=== PATIENT | female | born 1990 | race American Indian/Alaskan Native ===

== ENCOUNTER 2020-05-03 21:37 | Outpatient (CLI) | payer MEDICAID ==
[2020-05-03 22:00] VITALS: BP 131/67
== END 2020-05-03 23:35 | disposition home or self-care (01) ==
LOC: TRG 21:37 → APU 21:38 → TRG 23:35
PROVIDERS: ATTEND Obstetrics & Gynecology
DX: O42.913 Preterm premature rupture of membranes, unspecified as to length of time between rupture and onset of labor, third trimester (principal); Z3A.37 37 weeks gestation of pregnancy
CPT/HCPCS: 59025

== ENCOUNTER 2020-05-08 01:23 | Outpatient (CLI) | payer MEDICAID ==
[2020-05-08 01:51] VITALS: BP 120/58
== END 2020-05-08 03:04 | disposition home or self-care (01) ==
LOC: TRG 01:23 → APU 01:24 → TRG 03:04
PROVIDERS: ATTEND Obstetrics & Gynecology
DX: O47.02 False labor before 37 completed weeks of gestation, second trimester (principal); Z3A.25 25 weeks gestation of pregnancy
CPT/HCPCS: 59025

== ENCOUNTER 2020-05-10 23:06 | Inpatient (IN) | payer MEDICAID ==
[2020-05-11] MEDS ORDERED: BUTORPHANOL 2 MG/1 ML INJ IV PRN (02:18)
[2020-05-11] MEDS ORDERED: ePHEDrine SULFATE 50 MG/1 ML INJ IV PRN (02:18)
[2020-05-11] MEDS ORDERED: AMPICILLIN/NS 2 GM/100 ML 2 GM/100 ML BAG IV ONE (02:18)
[2020-05-11] MEDS ORDERED: TERBUTALINE 1 MG/1 ML INJ SUB-Q PRN (02:18)
[2020-05-11] MEDS ORDERED: LIDOCAINE (2%) 20 MG/1 ML VIAL 20 ML MDV INFILTRATI ONE (02:18)
[2020-05-11] MEDS ORDERED: MINERAL OIL 30 ML ORAL LIQD PO PRN (02:18)
[2020-05-11] MEDS ORDERED: ONDANSETRON 4 MG/2 ML INJ IV PRN ×4 (02:18→23:27)
[2020-05-11] MEDS ORDERED: OXYTOCIN DRIP 30 UNITS/500 ML BAG IV SCH ×4 (03:00→23:27)
[2020-05-11 03:42] LABS: Hemoglobin 12.5 gm/dl (10.1-14.3); Mean Corpuscular HGB Conc 34 % (30-34); Mean Corpuscular Volume 81 fl (79-97); Platelet Count 257 K/mm3 (140-440); Red Blood Count 4.59 M/mm3 (3.65-5.03); Red Cell Distribution Width 16.1 % (13.2-15.2)
[2020-05-11] MEDS: LACTATED RINGERS 1,000 ML IV SCH ×2 (04:48→08:20)
--- NOTE | 2020-05-11 07:54 | Anesthesia Consultation ---
Anesthesia Consult and Med Hx Date of service: 05/11/20 - Airway Anesthetic Teeth Evaluation: Good ROM Head & Neck: Adequate Mental/Hyoid Distance: Adequate Mallampati Class: Class III Intubation Access Assessment: Possibly Difficult - Pulmonary Exam CTA: Yes - Cardiac Exam Cardiac Exam: RRR - Pre-Operative Health Status ASA Pre-Surgery Classification: ASA2 Proposed Anesthetic Plan: Epidural - Pulmonary Hx Smoking: No Hx Asthma: No COPD: No Hx Pneumonia: No Hx Sleep Apnea: No - Cardiovascular System Hx Hypertension: No Hx Heart Attack/AMI: No - Central Nervous System Hx Seizures: No Hx Psychiatric Problems: No - Gastrointestinal Hx Gastroesophageal Reflux Disease: No - Endocrine Hx Renal Disease: No Hx End Stage Renal Disease: No Hx Insulin Dependent Diabetes: No Hx Non-Insulin Dependent Diabetes: No Hx Hypothyroidism: No Hx Hyperthyroidism: No - Hematic Hx Anemia: No Hx Sickle Cell Disease: No - Other Systems Hx Alcohol Use: No Hx Obesity: Yes
--- NOTE | 2020-05-11 07:55 | Progress Note ---
Labor Epidural - Labor Epidural Start Time: 07:32 Stop Time: 07:47 Performed by:: SHAUNNA SAINI Procedure: Patient is requesting a laboring epidural for laboring pain. Patient IDed, H&P reviewed, all questions and concerns were answered, and consent was signed. Timeout was performed at bedside. Patient in sitting position. Sterile prep and drape was performed. 3ml of 1% lidocaine skin wheal at L[3]- L [4]. 18- gauge Touhy epidural needle was advanced to loss of resistance with air technique. Negative CSF negative blood. Epidural catheter advanced to [16] centimeters. [-] Aspiration [-] test dose. Sterile dressing applied. Patient tolerated procedure.
[2020-05-11] MEDS ORDERED: NalbUPHINE 10 MG/1 ML INJ IV PRN (08:00)
[2020-05-11] MEDS ORDERED: NALOXONE 2 MG/2 ML INJ IV PRN (08:00)
[2020-05-11] MEDS ORDERED: diphenhydrAMINE 50 MG/ML VIAL IV PRN (08:00)
[2020-05-11] MEDS: fentaNYL-BUPIV 2 MCG/ML-0.125% 200 MCG/100 ML BAG EPIDURAL SCH ×2 (08:40→16:35)
--- NOTE | 2020-05-11 09:51 | History and Physical Report ---
History of Present Illness Date of examination: 05/11/20 Date of admission: 05/11/20 02:18 Chief complaint: Water broke History of present illness: Pt is a 29 yo at 38w6d EGA who presents reporting leaking fluid since last night. She has received care with [facility]. has been complicated by morbid obesity. She is GBS negative. Past History Past Medical History: no pertinent history Past Surgical History: no surgical history Social history: no significant social history - Obstetrical History Expected Date of Delivery: 05/19/20 Actual Gestation: 38 Week(s) 6 Day(s) : 2 Para: 1 Hx # Term Pregnancies: 1 Number of Living Children: 1 Medications and Allergies Allergies Allergy/AdvReac Type Severity Reaction Status Date / Time No Known Allergies Allergy Verified 05/11/20 02:33 Home Medications Medication Instructions Recorded Confirmed Last Taken Type Vitamin 1 tab PO DAILY 05/11/20 05/11/20 04/11/20 History Tylenol 325 mg PO 05/11/20 05/08/20 History Active Meds: Active Medications Butorphanol Tartrate (Stadol) 2 mg IV Q2H PRN PRN Reason: Pain , Severe (7-10) Last Admin: 05/11/20 06:10 Dose: 2 mg Documented by: Diphenhydramine HCl (Benadryl) 12.5 mg IV Q2H PRN PRN Reason: Itching Ephedrine Sulfate (Ephedrine Sulfate) 10 mg IV Q2M PRN PRN Reason: Hypotension Oxytocin/Sodium Chloride (Pitocin/Ns 30 Unit/500ml) 30 units in 500 mls @ 4 mls/hr IV TITR LAKHWINDER; Protocol Last Admin: 05/11/20 04:51 Dose: 4 ml/hr, 4 mls/hr Documented by: Lactated Ringer's (Lactated Ringers) 1,000 mls @ 125 mls/hr IV DIRECT LAKHWINDER Last Admin: 05/11/20 08:20 Dose: 125 mls/hr Documented by: Oxytocin/Sodium Chloride (Pitocin/Ns 30 Unit/500ml) 30 units in 500 mls @ 40 mls/hr IV TITR LAKHWINDER; Protocol Fentanyl/Bupivacaine/Sodium Chlor (Fentanyl-Bupiv 2 Mcg/Ml-0.125%) 200 mcg in 100 mls @ 12 mls/hr EPIDURAL TITR LAKHWINDER; Protocol Last Admin: 05/11/20 08:40 Dose: 12 mls/hr Documented by: Mineral Oil (Mineral Oil) 30 ml PO QHS PRN PRN Reason: Constipation Nalbuphine HCl (Nalbuphine) 2.5 mg IV Q2H PRN PRN Reason: Itching Naloxone HCl (Naloxone) 0.2 mg IV Q5M PRN PRN Reason: Respiratory sedation Ondansetron HCl (Zofran) 4 mg IV Q8H PRN PRN Reason: Nausea And Vomiting Terbutaline Sulfate (Brethine) 0.25 mg SUB-Q ONCE PRN PRN Reason: Hyperstimulation/Hypertonicity Review of Systems All systems: negative Genitourinary: leakage of fluid, contractions, no vaginal bleeding - Vital Signs Vital signs: Vital Signs Temp Pulse BP 99.0 F 103 H 128/60 05/10/20 23:34 05/10/20 23:34 05/10/20 23:34 Temp Pulse Resp BP Pulse Ox 98.7 F 102 H 20 108/58 100 05/11/20 08:08 05/11/20 09:45 05/11/20 07:30 05/11/20 09:45 05/11/20 09:42 - Physical Exam Lungs: Positive: Normal air movement Abdomen: Positive: soft. Negative: distention Genitourinary (Female): Positive: normal external genitalia Uterus: Positive: enlarged (gravid, EFW 7.5lb) Extremities: Positive: normal - Obstetrical FHR: category 1 Uterine Contraction Monitor Mode: External Cervical Dilatation: 5 Uterine Contraction Pattern: Regular Uterine Tone Measurement Phase: Contraction Uterine Contraction Intensity: Strong/Firm Results Result Diagrams: 05/11/20 03:19 Abnormal lab results 05/11/20 Range/Units 03:19 WBC 15.4 H (4.5-11.0) K/mm3 MCH 27 L (28-32) pg RDW 16.1 H (13.2-15.2) % All other labs normal. Assessment and Plan A: 29 yo at 38w6d EGA Premature rupture of membranes, on Pitocin overnight GBS negative Morbid obesity P: Admit to L&D, continue augmentation of labor Pain relief as requested Anticipate
[2020-05-11] MEDS ORDERED: CALCIUM GLUCONATE 1000 MG/10 ML INJ IV NR (13:09)
[2020-05-11] MEDS ORDERED: hydrALAZINE 20 MG/1 ML INJ IV PRN (13:09)
[2020-05-11] MEDS ORDERED: MAGNESIUM SULFATE 4 GM/100 ML BAG IV ONE (13:09)
--- NOTE | 2020-05-11 13:12 | Event Note ---
Date: 05/11/20 Pt noted to have severe range BP and reports blurry vision and black spots in vision. New diagnosis of preeclampsia with severe features. Initiate magnesium sulfate and rescue Hydralazine PRN.
[2020-05-11] MEDS ORDERED: LACTATED RINGERS 1,000 ML IV SCH ×2 (14:00→19:00)
[2020-05-11] MEDS ORDERED: MAGNESIUM SULFATE 40GM/1000ML 40 GM/1,000 ML BAG IV SCH (14:00)
[2020-05-11] MEDS ORDERED: FAMOTIDINE 20 MG/2 ML INJ IV ONE (18:32)
[2020-05-11] MEDS ORDERED: METOCLOPRAMIDE 10 MG/2 ML INJ IV ONE (18:32)
[2020-05-11] MEDS ORDERED: BICITRA ORAL LIQD 30ML PO ONE (18:32)
[2020-05-11] MEDS ORDERED: ceFAZolin/Water 2 GM/20 ML 2 GM/20 ML SYRINGE IV NR (19:00)
[2020-05-11] MEDS ORDERED: LIDOCAINE 2%/EPINEPHRINE 1:200,000 VIAL (20 ML) INFILTRATI ONE (19:02)
[2020-05-11] MEDS ORDERED: KETOROLAC 30 MG/1 ML INJ ONE (19:02)
[2020-05-11] MEDS ORDERED: ONDANSETRON 4 MG/2 ML INJ ONE (19:02)
[2020-05-11] MEDS ORDERED: ONDANSETRON 4 MG/2 ML INJ IV ONE (19:10)
[2020-05-11] MEDS ORDERED: METHYLERGONOVINE MALEATE 0.2 MG/ML VIAL IM ONE (19:13)
[2020-05-11] MEDS ORDERED: ceFAZolin/STERILE WATER 2 GM/20 ML SYRINGE IV ONE (19:15)
[2020-05-11] MEDS ORDERED: ESMOLOL 100 MG/10 ML INJ IV ONE ×5 (19:44→20:05)
[2020-05-11] MEDS ORDERED: KETOROLAC 30 MG/1 ML INJ IV ONE (20:15)
--- NOTE | 2020-05-11 20:32 | Procedure Note ---
OB Delivery Note - Delivery Date of Delivery: 05/11/20 Surgeon: JYOTI ALEXANDER Estimated blood loss: other (800 mL) - Section Preop diagnosis: nonreassuring FHR tracing Postop diagnosis: same section procedure: section, primary low transverse Disposition: PACU Narrative: Please see operative report - Infant A at 1 minute: 8 at 5 minutes: 9 Infant Gender: Male (2883g (6lb 6oz) @ 1938 pm)
--- NOTE | 2020-05-11 20:34 | Operative Report ---
Operative Report Operative Report: Date of procedure: May 11, 2020 Preoperative diagnosis: 1) IUP at 38w6d 2) Nonreassuring Status- rep etitive late decelerations 3) Prolonged ROM 4) Obesity Postoperative diagnosis: Same 5) Chorioamnionitis Procedure: Primary low transverse section Surgeon: Ernestina Floyd M.D. Anesthesia: Regional Findings: 1) Viable male , Apgars 8 and 9, weight 2883 g, (6 lb 6 oz) in cephalic presentation 2) Normal-appearing uterus ovaries and tubes Estimated blood loss: 800 mL IV fluids: 1200 mL Urine output: 30 mL, vannessa colored but clear at the start and at the end of the procedure Drains: Fowler to gravity Specimens: Placenta to pathology Complications:None. Counts correct x 3 Disposition: Stable to PACU Indication for procedure: Pt is a 29 year old at 38w6d who was admitted with rupture of membranes. She progressed to 8 cm then began to have repetitive lates with no further cervical change despite adequate contractility. The decision was made to proceed with section. Operation in detail: After the risks, benefits, alternatives and complications were explained to the patient she gave informed consent for the procedure. She was subsequently taken to the operating room where regional anesthesia was noted to be adequate. She was subsequently placed in the dorsal supine position with leftward tilt and prepped and draped in a normal sterile fashion. heart tones were noted prior to incision. A timeout was performed. A Pfannenstiel skin incision was made with the knife and carried down to the layer of the fascia with the Bovie. The fascia was incised in the midline and the fascial incision was extended bilaterally with the Bovie. The fascial incision was then stretched. The rectus muscles were then in the midline and partially transected for adequate visualization. The peritoneum was then entered bluntly. The peritoneal incision was extended with good visualization of the bladder. The peritoneal incision was then stretched. An Diony retractor was placed. The bladder blade was then placed. A transverse incision was made in the lower uterine segment with a knife and extended bilaterally with the bandage scissors. head delivered with ease, followed by shoulders and body. bulb suctioned at delivery. Cord clamped and cut. handed to NICU staff in attendance. Cord blood was collected. The placenta was then delivered manually. The uterus was then cleared of all clots and debris. The hysterotomy was then reapproximated with 0 Vicryl in a running locked fashion. A second layer of the same suture was used in imbricating fashion. An additional figure of eight of 0 Vicryl was used at the right apex of the hysterotomy to obtain hemostasis. The hysterotomy was inspected and hemostasis was noted. The gutters were irrigated and cleared of all clots and debris. The hysterotomy was again inspected and noted to be hemostatic. Surgicel was placed over the hysterotomy. The Diony retractor was removed. The peritoneum was reapproximated with 2-0 Vicryl in a running fashion incorporating the rectus muscles. Surgicel was placed over the rectus muscles. The fascia was reapproximated with 0 Vicryl in a running fashion. The subcutaneous tissue was reapproximated with 3-0 Vicryl in a running fashion. The skin was reapproximated with 4-0 Vicryl in a subcuticular fashion. The incision was then covered with steri strips and a pressure dressing. The procedure was then ended. The patient tolerated the procedure well and was taken to the PACU in stable condition. All instrument, lap, and needle counts were correct 3.
[2020-05-11] MEDS ORDERED: HYDROmorphone 1 MG/1 ML INJ IV PRN (20:39)
[2020-05-11] MEDS ORDERED: MORPHINE 4 MG/1 ML INJ IV PRN ×2 (20:39→23:27)
[2020-05-11] MEDS ORDERED: NALOXONE 0.4 MG/1 ML INJ IV PRN ×2 (20:39→23:27)
[2020-05-11] MEDS ORDERED: PROMETHAZINE 25 MG RECT SUPP PR PRN (20:39)
[2020-05-11] MEDS ORDERED: PROMETHAZINE 25 MG TAB PO PRN (20:39)
--- NOTE | 2020-05-11 20:41 | Anesthesia Day of Surgery ---
Anesthesia Day of Surgery - Day of Surgery Patient Examined: Yes Patient H&P Reviewed: Yes Patient is NPO: Yes Beta Blockers: No Cardiac Clearance: No Pulmonary Clearance: No Mickey's Test: N/A
[2020-05-11] MEDS ORDERED: MORPHINE 2 MG/1 ML INJ IV PRN (23:27)
[2020-05-11] MEDS ORDERED: LANOLIN/ZINC/DIMETHICONE (LANSINOH) 7 GM TP PRN (23:27)
[2020-05-11] MEDS ORDERED: D5W/LACTATED RINGERS 1,000 ML IV SCH (23:27)
[2020-05-11] MEDS ORDERED: IBUPROFEN 800 MG TAB PO PRN (23:27)
[2020-05-11] MEDS ORDERED: WITCH HAZEL/ GLYCERIN PAD TP PRN (23:27)
[2020-05-11] MEDS ORDERED: ACETAMINOPHEN 325 MG TAB PO PRN (23:27)
[2020-05-12] MEDS: KETOROLAC 30 MG/1 ML INJ IV SCH ×2 (00:09→05:40)
[2020-05-12] MEDS: ceFAZolin/NS 1 GM/50 ML 1 GM/50 ML BAG IV SCH ×2 (02:39→11:09)
--- NOTE | 2020-05-12 08:03 | Progress Note ---
Assessment and Plan A: POD1 s/p pLTCS Vital signs stable Awaiting H&H P: Continue current care Anticipate d/c to home on POD3 Subjective - Subjective Date of service: 05/12/20 Principal diagnosis: s/p LTCS Interval history: POD1 s/p pLTCS Patient reports: appetite normal, voiding normally, pain well controlled, flatus, ambulating normally : doing well, bottle feeding Objective - Vital Signs Latest vital signs: Vital Signs Temp Pulse Resp BP BP Pulse Ox 05/12/20 04:00 98.6 F 74 18 108/69 05/12/20 00:30 98.6 F 75 16 102/78 05/11/20 21:50 98.9 F 104 H 20 100/47 100 05/11/20 21:31 98.6 F 104 H 25 H 101/48 99 05/11/20 21:20 96 H 20 106/46 98 05/11/20 21:05 102 H 23 106/52 98 05/11/20 20:55 105 H 24 109/53 96 05/11/20 20:40 145 H 23 114/59 80 L 05/11/20 20:35 98.6 F 108 H 24 110/62 99 05/11/20 20:33 98.6 F 120 H 21 114/63 100 05/11/20 19:12 100.1 F H 05/11/20 18:59 114 H 131/75 05/11/20 18:53 119 H 100 05/11/20 18:48 111 H 100 05/11/20 18:43 110 H 139/76 99 05/11/20 18:38 103 H 100 05/11/20 18:33 109 H 100 05/11/20 18:28 119 H 130/62 100 05/11/20 18:23 115 H 99 05/11/20 18:18 130 H 99 05/11/20 18:13 112 H 112/59 99 05/11/20 18:08 109 H 99 05/11/20 18:03 116 H 100 05/11/20 17:58 113 H 100 05/11/20 17:57 116 H 122/66 05/11/20 17:53 119 H 100 05/11/20 17:48 106 H 100 05/11/20 17:43 104 H 132/74 100 05/11/20 17:38 111 H 100 05/11/20 17:33 103 H 100 05/11/20 17:28 105 H 132/73 100 05/11/20 17:23 105 H 100 05/11/20 17:18 131 H 100 05/11/20 17:13 120 H 129/76 100 05/11/20 17:08 109 H 100 05/11/20 17:03 103 H 100 05/11/20 16:58 103 H 124/70 100 05/11/20 16:52 99 H 100 05/11/20 16:47 109 H 100 05/11/20 16:42 107 H 122/71 100 05/11/20 16:37 97 H 100 05/11/20 16:32 100 H 100 05/11/20 16:27 104 H 125/70 100 05/11/20 16:25 98.8 F 05/11/20 16:22 96 H 100 05/11/20 16:17 106 H 100 05/11/20 16:13 108 H 113/65 05/11/20 16:12 96 H 100 05/11/20 16:07 109 H 100 05/11/20 16:02 144 H 100 05/11/20 15:57 113 H 120/65 100 05/11/20 15:52 105 H 100 05/11/20 15:47 102 H 100 05/11/20 15:43 101 H 112/59 05/11/20 15:42 103 H 100 05/11/20 15:37 98 H 100 05/11/20 15:32 98 H 100 05/11/20 15:27 99 H 101/54 100 05/11/20 15:22 103 H 100 05/11/20 15:17 100 H 100 05/11/20 15:12 103 H 99/55 100 05/11/20 15:07 104 H 100 05/11/20 15:02 108 H 100 05/11/20 14:57 102 H 107/55 100 05/11/20 14:53 110 H 93 05/11/20 14:52 113 H 100 05/11/20 14:47 105 H 100 05/11/20 14:42 101 H 107/58 100 05/11/20 14:37 101 H 100 05/11/20 14:32 98 H 100 05/11/20 14:27 101 H 102/54 100 05/11/20 14:22 99 H 100 05/11/20 14:17 99 H 100 05/11/20 14:12 98 H 103/53 100 05/11/20 14:07 110 H 99 05/11/20 14:02 109 H 99 05/11/20 14:00 129 H 86 05/11/20 13:58 99 H 114/59 05/11/20 13:57 101 H 99 05/11/20 13:52 101 H 99 05/11/20 13:47 104 H 99 05/11/20 13:42 111 H 112/64 100 05/11/20 13:37 113 H 100 05/11/20 13:32 113 H 99 05/11/20 13:28 109 H 116/63 05/11/20 13:27 121 H 99 05/11/20 13:26 113 H 109/55 05/11/20 13:24 115 H 94 05/11/20 13:22 132 H 100 05/11/20 13:17 114 H 100 05/11/20 13:12 117 H 97 05/11/20 13:07 116 H 100 05/11/20 13:05 82 160/93 05/11/20 13:02 130 H 98 05/11/20 12:57 105 H 100 05/11/20 12:52 112 H 100 05/11/20 12:47 121 H 100 05/11/20 12:42 122 H 98 05/11/20 12:37 99.0 F 110 H 20 99 05/11/20 12:34 109 H 117/61 05/11/20 12:32 116 H 99 05/11/20 12:27 99 H 99 05/11/20 12:22 114 H 100 05/11/20 12:17 99 H 100 05/11/20 12:12 109 H 100 05/11/20 12:07 98 H 97 05/11/20 12:05 102 H 117/64 05/11/20 12:02 107 H 99 05/11/20 11:57 111 H 98 05/11/20 11:52 94 H 98 05/11/20 11:47 96 H 98 05/11/20 11:42 96 H 100 05/11/20 11:37 95 H 96 05/11/20 11:34 97 H 114/65 05/11/20 11:32 95 H 96 05/11/20 11:27 97 H 96 05/11/20 11:22 105 H 98 05/11/20 11:17 101 H 100 05/11/20 11:12 108 H 99 05/11/20 11:07 119 H 100 05/11/20 11:06 106 H 95/46 93 05/11/20 11:02 108 H 97 05/11/20 10:57 144 H 99 05/11/20 10:54 104 H 91 05/11/20 10:52 101 H 99 05/11/20 10:47 110 H 99 05/11/20 10:42 98 H 100 05/11/20 10:37 102 H 100 05/11/20 10:33 105 H 105/55 05/11/20 10:32 104 H 99 05/11/20 10:30 110 H 111/61 05/11/20 10:27 104 H 109/55 98 05/11/20 10:24 111 H 110/56 05/11/20 10:22 97 H 99 05/11/20 10:21 96 H 108/57 05/11/20 10:18 96 H 106/59 05/11/20 10:17 95 H 97 05/11/20 10:15 104 H 101/57 05/11/20 10:12 104 H 111/58 99 05/11/20 10:09 98 H 110/55 05/11/20 10:07 98 H 95 05/11/20 10:06 107 H 115/55 05/11/20 10:03 99 H 111/56 05/11/20 10:02 97 H 95 05/11/20 10:00 102 H 112/57 94 05/11/20 09:57 97 H 115/59 98 05/11/20 09:54 98 H 107/56 94 05/11/20 09:52 98 H 96 05/11/20 09:51 106 H 115/55 05/11/20 09:48 104 H 107/58 05/11/20 09:47 101 H 99 05/11/20 09:45 102 H 108/58 05/11/20 09:42 104 H 116/55 100 05/11/20 09:39 104 H 116/56 05/11/20 09:38 103 H 92 05/11/20 09:37 98 H 96 05/11/20 09:36 100 H 117/56 05/11/20 09:33 101 H 120/55 05/11/20 09:32 110 H 97 05/11/20 09:30 96 H 112/55 93 05/11/20 09:27 105 H 112/57 97 05/11/20 09:24 96 H 108/55 05/11/20 09:22 103 H 99 05/11/20 09:21 109 H 120/57 05/11/20 09:18 99 H 112/54 05/11/20 09:17 99 H 99 05/11/20 09:15 104 H 118/58 05/11/20 09:12 99 H 113/59 97 05/11/20 09:09 99 H 110/57 05/11/20 09:07 105 H 98 05/11/20 09:06 112 H 99/54 05/11/20 09:03 94 H 115/57 05/11/20 09:02 97 H 97 05/11/20 09:00 97 H 117/58 05/11/20 08:57 91 H 114/56 97 05/11/20 08:54 95 H 114/56 05/11/20 08:52 99 H 98 05/11/20 08:51 97 H 112/54 05/11/20 08:48 100 H 111/54 05/11/20 08:47 102 H 100 05/11/20 08:45 96 H 108/54 05/11/20 08:42 95 H 110/57 95 05/11/20 08:39 116 H 108/53 05/11/20 08:37 97 H 97 05/11/20 08:36 108 H 113/56 05/11/20 08:33 99 H 110/53 05/11/20 08:32 107 H 96 05/11/20 08:30 101 H 107/54 05/11/20 08:29 106 H 94 05/11/20 08:27 104 H 109/55 97 05/11/20 08:24 94 H 109/55 05/11/20 08:22 96 H 100 05/11/20 08:21 103 H 106/54 05/11/20 08:18 96 H 103/55 05/11/20 08:17 109 H 97 05/11/20 08:15 100 H 104/51 05/11/20 08:12 100 H 109/53 96 05/11/20 08:08 98.7 F 05/11/20 08:07 107 H 97 05/11/20 08:06 109 H 125/58 05/11/20 08:03 120 H 124/57 Intake and Output 05/11/20 05/12/20 05/12/20 23:59 07:59 15:59 Intake Total 1307.200 Output Total 600 900 Balance 707.200 -900 Intake: IV 1307.200 PITOCin/NS 30 UNIT/500ML 7.200 30 units In 500 ml @ 4 mls/hr IV TITR LAKHWINDER Rx#: [id number] Output: Urine 600 900 Indwelling Catheter 900 Uretheral (Fowler) 150 Other: Total, Output Amount 900 # Voids Void 1 Estimated Blood Loss 800 - Exam Lungs: Present: Normal air movement Abdomen: Present: soft. Absent: distention Uterus: Present: firm, fundal height below umbilicus. Absent: bogginess Extremities: Present: normal Incision: Present: dressed
--- NOTE | 2020-05-12 09:40 | Post Anesthesia Evaluation ---
- Post Anesthesia Evaluation Patient Participated: Yes Airway Patent: Yes Stable Respiratory Function: Yes Nausea/Vomiting: No Temp > 96.8F: Yes Pain Manageable: Yes Adequeate Hydration: Yes Anesthesia Complications: No Block Receding Appropriately: Yes Patient on Ventilator: No
[2020-05-12] MEDS: FERROUS SULFATE 325 MG TAB PO SCH (10:59)
[2020-05-12] MEDS: oxyCODONE /ACETAMINOPHEN 5-325MG TAB PO PRN ×3 (11:04→20:32)
[2020-05-12 12:45] LABS: Hematocrit 33.6 % (30.3-42.9); Hemoglobin 11.1 gm/dl (10.1-14.3)
[2020-05-12] MEDS ORDERED: MAGNESIUM HYDROXIDE (MOM) ORAL LIQD UDC PO PRN (20:42)
[2020-05-12] MEDS ORDERED: MEASLES, MUMPS & RUBELLA 12,500 UNIT/0.5 ML VACCINE SUB-Q ONE (20:43)
[2020-05-13] MEDS: oxyCODONE /ACETAMINOPHEN 5-325MG TAB PO PRN ×3 (00:44→15:12)
[2020-05-13] MEDS ORDERED: DIPHtheria,PERTUSSIS(ACELL),TETANUS VACCINE/PF 0.5 ML VIAL IM ONE (06:00)
--- NOTE | 2020-05-13 07:59 | Progress Note ---
Assessment and Plan - Patient Problems (1) delivery delivered Current Visit: Yes Status: Acute Plan to address problem: Patient doing well Routine postoperative care Discharge home Subjective - Subjective Date of service: 05/13/20 Principal diagnosis: s/p LTCS Interval history: Patient without any significant complaints. She is tolerating regular diet and voiding spontaneously. Patient reports: appetite normal, voiding normally, pain well controlled Anthony: doing well Objective - Vital Signs Latest vital signs: Vital Signs Temp Pulse Resp BP BP Pulse Ox 05/12/20 20:54 98.4 F 109 H 20 114/62 98 05/12/20 16:20 97.8 F 99 H 18 115/66 05/12/20 16:05 20 05/12/20 12:00 98.2 F 97 H 18 100/63 05/12/20 11:04 20 05/12/20 08:25 98.2 F 86 18 117/66 Intake and Output 05/12/20 05/13/20 05/13/20 22:59 06:59 14:59 Intake Total 360 240 Balance 360 240 Intake: Oral 240 Intake, Free Water 360 Other: Total, Intake Amount 240 # Voids Void 3 - Exam Abdomen: Present: normal appearance, soft
--- NOTE | 2020-05-13 08:01 | Discharge Summary ---
Providers - Providers Date of Admission: 05/11/20 02:18 Date of discharge: 05/13/20 Attending physician: BÁRBARA PINTO 05/11/20 23:27 Consult to [employer] [CONS] Routine Reason For Exam: Primary care physician: BÁRBARA PINTO Hospitalization Reason for admission: rupture of membranes Delivery: Procedure: section, primary low transverse Discharge diagnosis: IUP at term delivered Hospital course: The patient was admitted with gross rupture membranes. Her intrapartum course is complicated by nonreassuring heart rate tracing. The patient was taken for primary delivery. Postoperative course was uneventful. Condition at discharge: Good Disposition: DC-01 TO HOME OR SELFCARE - Discharge Diagnoses (1) delivery delivered Status: Acute Plan - Discharge Medications Prescriptions: Ibuprofen [Motrin] 800 mg PO Q8HR PRN #60 tablet PRN Reason: Pain , Severe (7-10) oxyCODONE /ACETAMINOPHEN [Percocet 5/325] 1 tab PO Q6HR PRN #30 tablet PRN Reason: Pain - Provider Discharge Summary Activity: no sex for 6 weeks, no heavy lifting 4 weeks, no strenuous exercise Diet: routine Instructions: routine Additional instructions: [] Smoking cessation referral if applicable(refer to patient education folder for contact #) [] Refer to [facility]'s [facility] Booklet Call your doctor immediately for: * Fever > 100.5 * Heavy vaginal bleeding ( >1 pad per hour) * Severe persistent headache * Shortness of breath * Reddened, hot, painful area to leg or breast * Drainage or odor from incision. * Keep incision clean and dry at all times and follow doctor's instructions regarding bathing/showering Schedule postoperative visit in 2 weeks - Follow up plan Forms: [facility] Discharge Summary
[2020-05-13] MEDS: FERROUS SULFATE 325 MG TAB PO SCH (09:38)
[2020-05-13 14:18] VITALS: BP 121/65
== END 2020-05-13 16:30 | disposition home or self-care (01) | DRG 765 ==
LOC: TRG 23:06 → APU 23:18 → LD 05-11 02:18 → TRG 05-11 02:18 → OB 05-11 22:22
PROVIDERS: ADMIT Obstetrics & Gynecology; ATTEND Obstetrics & Gynecology
PROC: 10D00Z1 Extraction of Products of Conception, Low, Open Approach (ICD-10-PCS; principal; 2020-05-11)
PROC: 3E0R3BZ Introduction of Anesthetic Agent into Spinal Canal, Percutaneous Approach (ICD-10-PCS; 2020-05-11)
PROC: 00HU33Z Insertion of Infusion Device into Spinal Canal, Percutaneous Approach (ICD-10-PCS; 2020-05-11)
PROC: 3E0234Z Introduction of Serum, Toxoid and Vaccine into Muscle, Percutaneous Approach (ICD-10-PCS; 2020-05-13)
DX: O99.214 Obesity complicating childbirth (principal); O41.1230 Chorioamnionitis, third trimester, not applicable or unspecified; O42.92 Full-term premature rupture of membranes, unspecified as to length of time between rupture and onset of labor; O14.14 Severe pre-eclampsia complicating childbirth; Z3A.38 38 weeks gestation of pregnancy; Z37.0 Single live birth; Z20.828 Contact with and (suspected) exposure to other viral communicable diseases; Z23 Encounter for immunization; E66.01 Morbid (severe) obesity due to excess calories; O76 Abnormality in fetal heart rate and rhythm complicating labor and delivery
CPT/HCPCS: 36415; 59025; 85014; 85018; 85027; 86592; 86850; 86900; 86901; 88307; G0378; J0290; J0595; J0690; J1885; J2405; J2590; J2765; J7120; J7121; U0003

== ENCOUNTER 2020-05-29 11:07 | Emergency (ER) | payer MEDICAID ==
[2020-05-29 11:15] VITALS: BP 152/77
--- NOTE | 2020-05-29 11:46 | Emergency Department Report ---
Chief Complaint: Skin/Abscess/Foreign Body Stated Complaint: C SECTION AREA HAS PUS - HPI History of Present Illness: The patient was evaluated in the emergency department for symptoms described in the history of present illness. He/she was evaluated in the context of the global COVID-19 pandemic, which necessitated consideration that the patient might be at risk for infection with the virus that causes COVID-19. Institutional protocols and algorithms that pertain to the evaluation of nikita ents at risk for COVID-19 are in a state of rapid change based on information released by regulatory bodies including the CDC and federal and state organizations. These policies and algorithms were followed during the patient's care in the emergency department. Please note that these policies, procedures and recommendations changed on a rapid basis. 29-year-old -Chinese female presents to the emergency room for a wound check. Patient states that she had a May 11 and was concerned that her incision was infected. Patient reports that she saw her DIET THERAPIST doctor, Dr. Ernestina Floyd on 05/25/2020. At that time she was placed on Keflex, Percocets, ibuprofen and instructed to take mag citrate to keep her bowels moving. Patient denies any fever no chills no nausea no vomiting no chest pain. Does report there is some leakage. - Exam Vital Signs: Vital Signs 05/29/20 11:12 Temperature 98.2 F Pulse Rate 101 H Respiratory 18 Rate Blood Pressure 152/77 O2 Sat by Pulse 98 Oximetry Physical Exam: Alert and oriented x3 no acute distress nontoxic in appearance Lungs: No accessory muscles use nonlabored breathing Abdomen: Soft nondistended mild tenderness along the incision. C- section incision has some serosanguineous discharge mild tenderness to touch non erythematous. Ambulatory gait was stable. MSE screening note: Focused history and physical exam performed. Due to findings the following was ordered: 29-year-old -Chinese female presents to the emergency room for a wound check. Patient states that she had a May 11 and was concerned that her incision was infected. Patient reports that she saw her DIET THERAPIST doctor, Dr. Ernestina Floyd on 05/25/2020. At that time she was placed on Keflex, Percocets, ibuprofen and instructed to take mag citrate to keep her bowels moving. Patient denies any fever no chills no nausea no vomiting no chest pain. Does report there is some leakage. Instructed patient to continue all antibiotics and pain medication as needed. Instructed patient to keep her follow-up appointment with Dr. Floyd. Instructed patient to return back immediately to the hospital she has spiked a fever worsening pain distention of her abdomen nausea vomiting. Also discussed with patient to keep the wound clean and dry either by placing a cotton maxi pad or gauze to the area. Pat dry do not rub 1 she takes a shower. ED Disposition for MSE Clinical Impression: Encounter for postoperative wound check Disposition: MED SCREENING EXAM-LEFT Is pt being admited?: No Does the pt Need Aspirin: No Condition: Stable Instructions: Incision Care, Adult Additional Instructions: Instructed patient to continue all antibiotics and pain medication as needed. Instructed patient to keep her follow-up appointment with Dr. Floyd. Instructed patient to return back immediately to the hospital she has spiked a fever worsening pain distention of her abdomen nausea vomiting. Also discussed with patient to keep the wound clean and dry either by placing a cotton maxi pad or gauze to the area. Pat dry do not rub 1 she takes a shower. Referrals: ERNESTINA FLOYD MD [Staff Physician] - 3-5 Days
== END 2020-05-29 12:13 | disposition left against medical advice (07) ==
LOC: ED 11:07
DX: Z48.01 Encounter for change or removal of surgical wound dressing (principal); Z53.21 Procedure and treatment not carried out due to patient leaving prior to being seen by health care provider